=== PATIENT | female | born 1995 | race Caucasian/White ===

== ENCOUNTER 2017-03-25 21:44 | Emergency (ER) | payer BC, MEDICAID ==
[2017-03-25] MEDS ORDERED: ONDANSETRON HCL IV 4 MG/2 ML VIAL IVP ONE (22:41)
[2017-03-25] MEDS ORDERED: HYDROMORPHONE HCL 1 MG/ML SYRINGE IVP ONE (22:42)
[2017-03-25] MEDS ORDERED: 0.9 % SODIUM CHLORIDE 1000ML 1,000 ML IV SCH (22:45)
--- NOTE | 2017-03-25 22:46 | Emergency Department Record ---
History of Present Illness - General Stated Complaint: VOMITING,GALL BLADDER Time Seen by Provider: 03/25/17 21:56 Source: Patient Mode of Arrival: Ambulatory Limitations: No limitations - History of Present Illness Initial Comments: 22 yo female presents to ED for evaluation of intermittent abdominal pain and vomiting symptoms that occurred initially 3 weeks ago, resolved, but returned today. Patient's mother reports vomiting x 4-5 times associated with bilateral upper quadrant and epigastric pain symptoms. Patient denies fevers, chills, or recent illness, denies previous abdominal surgeries. 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 MD Complaint: Abdominal pain Onset/Timin -: Days(s) Location: Epigastric, LUQ, RUQ Radiation: Back Severity: Moderate Quality: Sharp, Stabbing Consistency: Constant Improves With: Nothing Worsens With: Eating Associated Symptoms: Nausea, Vomiting - Related Data Previous Rx's Medication Instructions Recorded Hyoscyamine Sulfate [Levsin-Sl] 0.25 mg SL Q8H PRN #20 tab.subl 03/26/17 Ondansetron [Zofran Odt] 4 mg PO Q8H PRN #20 tab.rapdis 03/26/17 Allergies Allergy/AdvReac Type Severity Reaction Status Date / Time hydrocodone bitartrate Allergy ITCHING Verified 01/10/15 03:33 [From Lortab] amoxicillin trihydrate AdvReac ABDOMINAL Verified 01/10/15 03:33 [From Augmentin] PAIN morphine AdvReac VOMITING Verified 01/10/15 03:33 oxycodone AdvReac VOMITING Verified 01/10/15 03:33 potassium clavulanate AdvReac ABDOMINAL Verified 01/10/15 03:33 [From Augmentin] PAIN Review of Systems Constitutional: Denies: Chills, Fever, Malaise, Night sweats Eyes: Denies: Eye discharge, Eye pain ENT: Denies: Congestion, Ear pain, Epistaxis Respiratory: Denies: Cough, Dyspnea Cardiovascular: Denies: Chest pain, Dyspnea on exertion Endocrine: Denies: Fatigue, Heat or cold intolerance Gastrointestinal: Reports: Abdominal pain, Nausea, Vomiting Genitourinary: Denies: Incontinence, Retention Musculoskeletal: Denies: Arthralgia, Back pain, Gout, Joint swelling Skin: Denies: Bruising, Change in color Neurological: Denies: Abnormal gait, Confusion, Headache, Seizure Psychiatric: Denies: Anxiety Hematological/Lymphatic: Denies: Anemia, Blood Clots Past Medical History - SOCIAL HISTORY Smoking Status: Never smoker - RESPIRATORY Hx Respiratory Disorders: Yes Hx Asthma: Yes - CARDIOVASCULAR Hx Cardio Disorders: Yes Comment:: murmur - NEURO Hx Neuro Disorders: No - GI Hx GI Disorders: No - Hx Genitourinary Disorders: No - ENDOCRINE Hx Endocrine Disorders: No - MUSCULOSKELETAL Hx Musculoskeletal Disorders: Yes - PSYCH Hx Psych Problems: No - HEMATOLOGY/ONCOLOGY Hx Hematology/Oncology Disorders: No Family Medical History Family Hx Comment (NOT TO BE USED IN PLACE OF ITEMS BELOW): father IPF, mom thyroid disease and fibromyalgia Hx Diabetes: Father Hx HTN: Father Physical Exam - General General Appearance: Alert, Oriented x3, Cooperative, Moderate distress Limitations: No limitations - Head Head exam: Atraumatic, Normocephalic, Normal inspection Head exam detail: negative: Abrasion, Contusion, Snow's sign, General tenderness, Hematoma, Laceration - Eye Eye exam: Normal appearance. negative: Conjunctival injection, Periorbital swelling, Periorbital tenderness, Scleral icterus - ENT Ear exam: negative: Auricular hematoma, Auricular trauma Nasal Exam: negative: Active bleeding, Discharge, Dried blood, Foreign body Mouth exam: negative: Drooling, Laceration, Muffled voice, Tongue elevation - Neck Neck exam: Normal inspection. negative: Meningismus, Tenderness - Respiratory Respiratory exam: Normal lung sounds bilaterally. negative: Rales, Respiratory distress, Rhonchi, Stridor - Cardiovascular Cardiovascular Exam: Regular rate, Normal rhythm, Normal heart sounds - GI/Abdominal GI/Abdominal exam: Soft, Tenderness (TTP to the epigastric region, LUQ, and RUQ on examination.). negative: Rebound, Rigid - Rectal Rectal exam: Deferred - exam: Deferred - Extremities Extremities exam: Normal inspection. negative: Calf tenderness, Pedal edema, Tenderness - Back Back exam: Denies: CVA tenderness (R), CVA tenderness (L) - Neurological Neurological exam: Alert, Normal gait, Oriented X3 - Psychiatric Psychiatric exam: Flat affect - Skin Skin exam: Pallor Type of lesion: negative: abrasion Course - Reevaluation(s) Reevaluation #1: 03/25/17 23:22 Labs reviewed and are grossly unremarkable for an acute process. Patient is currently in CT. Reevaluation #2: 03/25/17 23:54 CT Abdomen and Pelvis: 4.3 cm complex septated cyst with small amount free fluid Few scattered diverticula with mild thickening of debbie sigmoid/descending colon, may be related to underdistension Reevaluation #3: 03/26/17 00:55 UA reviewed and appears negative for infection. Patient reports improvement in her pain and nausea symptoms, and appears stable for discharge at this time. Medical Decision Making - Lab Data Result diagrams: 03/25/17 22:55 03/25/17 22:55 Disposition Disposition: Discharge Clinical Impression: Nausea & vomiting Qualifiers: Vomiting type: unspecified Vomiting Intractability: unspecified Qualified Code( s): R11.2 - Nausea with vomiting, unspecified Disposition: Home, Self-Care Condition: (2) Stable Instructions: Acute Nausea and Vomiting (ED) Additional Instructions: Return to ED if your symptoms worsen or if you have any concerns. Zofran and Levsin as directed. Follow-up with your family doctor in 1-3 days as directed. HIDA scan may be considered for further evaluation of the gallbladder. Prescriptions: Hyoscyamine Sulfate [Levsin-Sl] 0.25 mg SL Q8H PRN #20 tab.subl PRN Reason: Abdominal Pain Ondansetron [Zofran Odt] 4 mg PO Q8H PRN #20 tab.rapdis PRN Reason: Nausea/Vomiting Time of Disposition: 00:53 Quality - Quality Measures Quality Measures: N/A - Blood Pressure Screening Does Patient Have Any of the Following: No Blood Pressure Classification: Normal BP Reading Systolic Measurement: 105 Diastolic Measurement: 61 Screening for High Blood Pressure: < Normal BP, F/U Not Required > [G8783]
[2017-03-25 23:00] LABS: BASO % 0.2 % (0-6); EOS % 0.5 % (0-6); GRAN % 74.3 % (47-80); HEMATOCRIT 39.5 % (35.0-47.0); HEMOGLOBIN 13.5 gm/dl (11.6-16.0); LYMPH % 17.8 % (16-45); MEAN CELL VOLUME 91.2 fl (81-97); MEAN CORPUSCULAR HEMOGLOBIN 31.2 pg (27-33); MEAN CORPUSCULAR HGB CONC 34.2 g/dl (32-36); MEAN PLATELET VOLUME 8.7 fl (7.4-10.4); MONO % 7.2 % (0-9); PLATELET COUNT 327 K/uL (130-400); RED BLOOD COUNT 4.33 M/uL (3.80-5.40); WHITE BLOOD COUNT W/O DIFF 6.4 K/uL (4.2-12.2)
[2017-03-25 23:13] LABS: BLOOD UREA NITROGEN 6 mg/dL (6-20); CREATININE 0.5 mg/dL (0.5-0.9); EST GLOMERULAR FILTRATION RATE > 60 mL/min; TOTAL PROTEIN 7.4 g/dL (6.6-8.7)
[2017-03-25 23:15] LABS: GLUCOSE,RANDOM 146 mg/dL (74-109)
[2017-03-25 23:18] LABS: ALB/GLOB RATIO 1.6 (1.1-1.8); ALBUMIN 4.5 g/dL (4.0-5.0); ALKALINE PHOSPHATASE 62 U/L (35-104); ALT/SGPT 8 U/L (<33); AST/SGOT 16 U/L (10.0-35.0); LIPASE 14 U/L (13-60)
[2017-03-26 00:39] LABS: URINE APPEARANCE SL CLOUDY; URINE BILIRUBIN NEGATIVE (NEGATIVE); URINE BLOOD TRACE-I (NEGATIVE); URINE COLOR YELLOW; URINE GLUCOSE (UA) NEGATIVE (NEGATIVE); URINE KETONE 15 mg/dL (NEGATIVE); URINE LEUKOCYTE ESTERASE NEGATIVE (NEGATIVE); URINE NITRITE NEGATIVE (NEGATIVE); URINE PROTEIN NEGATIVE (NEGATIVE); URINE UROBILINOGEN 0.2 E.U./dL (0.20 - 1.00)
[2017-03-26 00:43] LABS: URINE RBC 0 - 2 (NONE SEEN); URINE WBC 0 - 2 (0-2/hpf)
[2017-03-26 00:44] LABS: HCG,QUALITATIVE URINE NEGATIVE (NEGATIVE); URINE AMORPHOUS SEDIMENT 2+
[2017-03-26] MEDS ORDERED: HYOSCYAMINE SULFATE ODT 0.125 MG TAB.SUBL SL ONE ×2 (00:46→01:13)
[2017-03-26 00:50] LABS: AMPHETAMINE SCREEN URINE NOT DETECTED; BARBITURATE SCREEN URINE NOT DETECTED; BENZODIAZEPINE SCREEN URINE NOT DETECTED; COCAINE SCREEN URINE NOT DETECTED; METHADONE SCREEN URINE NOT DETECTED; METHAMPHETAMINE SCREEN NOT DETECTED; OPIATE SCREEN URINE NOT DETECTED; OXYCODONE SCREEN URINE NOT DETECTED; PHENCYCLIDINE SCREEN URINE NOT DETECTED; PROPOXYPHENE SCREEN URINE NOT DETECTED; THC SCREEN URINE NOT DETECTED; TRICYCLIC ANTIDEPRESSANT SCRN NOT DETECTED
[2017-03-26] MEDS ORDERED: ONDANSETRON 4 MG ODT TABLET SL ONE (01:13)
--- NOTE | 2017-03-26 20:38 | CT SCAN REPORT ---
EXAM: CT SCAN ABDOMEN/PELVIS W CONTRAST HISTORY: UPPER ABDOMEN AND BACK PAIN BEGINNING FIVE HOURS AGO. TECHNIQUE: Contrast-enhanced helical CT examination of the abdomen and pelvis is performed including delayed images through the kidneys with 100 mL of Omnipaque-300 utilized. Oral contrast was not limiting evaluation of bowel. COMPARISON: None. FINDINGS: Spinal fixation hardware is in place within the lower thoracic and upper lumbar portions of the spine. Beam-hardening artifact from this hardware mildly limits evaluation. There is linear scarring vs. atelectasis in the lateral left lung base. The lung bases are otherwise clear and there is no pleural or pericardial effusion. The heart is not enlarged. The liver, spleen, pancreas, adrenal glands, and kidneys, to the extent visualized are normal in appearance. The gallbladder is mildly distended. No definite gallbladder wall thickening or cholelithiasis. No gross biliary ductal dilatation. No definite intraabdominal nor retroperitoneal lymphadenopathy. The vasculature is normal in appearance. There is a dominant cystic structure in the right adnexa measuring 4.2 x 3.6 cm. A second adjacent cystic area is demonstrated, somewhat more tubular in shape. No other evidence of pelvic mass nor adenopathy. No free fluid in the cul-de- sac. No intrinsic urinary bladder abnormality. No gross bowel dilatation nor bowel wall thickening.Occasional diverticula are noted within the colon without evidence of diverticulitis. The appendix is not visualized with confidence. There are no findings of acute appendicitis. The abdominal wall is unremarkable. No lytic or blastic bone lesion. IMPRESSION: 1. SPINAL FIXATION HARDWARE IN THE LOWER THORACIC AND UPPER LUMBAR PORTIONS OF THE SPINE IDENTIFIED. BEAM-HARDENING ARTIFACT FROM THIS HARDWARE MILDLY LIMITS EVALUATION. 2. DOMINANT, POSSIBLY COMPLEX CYSTIC STRUCTURE IN THE RIGHT ADNEXA MEASURING 4.2 X 3.6 CM APPEARING TO ARISE FROM THE RIGHT OVARY. THERE MAY BE ASSOCIATED TRACE FREE FLUID. WHILE A FUNCTIONAL OVARIAN CYST IS THE MOST LIKELY ETIOLOGY, OTHER ETIOLOGIES CANNOT BE ENTIRELY EXCLUDED. IF CLINICALLY WARRANTED, THIS COULD BE FURTHER EVALUATED WITH PELVIC ULTRASOUND. 3. OCCASIONAL DIVERTICULA ARISING WITHIN THE COLON WITHOUT DEFINITE EVIDENCE OF DIVERTICULITIS. NOT MENTIONED ABOVE IS APPARENT BORDERLINE WALL THICKENING IN THE LEFT COLON, LIKELY DUE TO INCOMPLETE DISTENTION. JOB NUMBER: [id number] [facility]
== END 2017-03-26 01:27 | disposition home or self-care (01) ==
LOC: ER 21:44
DX: R11.2 Nausea with vomiting, unspecified (principal); N83.291 Other ovarian cyst, right side; R10.13 Epigastric pain
CPT/HCPCS: 99284 ×2; 96374; 96375; 96361; 83690; 85025; 80053; 81001; 81025; 80305; 74177; Q9967; J1980; J2405; J1170; J7030